=== PATIENT | female | born 1990 ===

== ENCOUNTER 2022-03-27 22:24 | Emergency (ER) | payer OTHER, SELFPAY ==
[2022-03-27] MEDS ORDERED: IBUPROFEN 400 MG TAB ONE (23:00)
--- NOTE | 2022-03-28 00:01 | ER ---
Nurse's Notes [facility] Name: Emily Oswald Age: 31 yrs Sex: Female : 1990 Arrival Date: 03/27/2022 Time: 22:45 Bed 28 Private MD: Diagnosis: Other sprain of left foot Presentation: 03/27 22:50 Chief complaint: Patient states: I tried to carry my friends daughter who is about the jb4 same size as I am, I took 2 steps and my foot folded under. Now it is bruised and swollen. Coronavirus screen: At this time, the client does not indicate any symptoms associated with coronavirus-19. Ebola Screen: No symptoms or risks identified at this time. Initial Sepsis Screen: Does the patient meet any 2 criteria? HR > 90 bpm. Yes Does the patient have a suspected source of infection? No. Patient's initial sepsis screen is negative. Risk Assessment: Do you want to hurt yourself or someone else? Patient reports no desire to harm self or others. Onset of symptoms was March 27, 2022. Transition of care: patient was not received from another setting of care. 22:50 Method Of Arrival: Wheelchair jb4 22:50 Acuity: MIRYAM 4 jb4 Triage Assessment: 22:59 General: Appears in no apparent distress. comfortable, Behavior is calm, cooperative. jb4 Pain: Complains of pain in left foot Pain does not radiate. Pain currently is 4 out of 10 on a pain scale. Neuro: Flores Agitation-Sedation Scale (RASS): 0 - Alert and Calm Level of Consciousness is awake, alert, obeys commands, Oriented to person, place, time, situation. Cardiovascular: Patient's skin is warm and dry. Respiratory: Airway is patent Respiratory effort is even, unlabored, Respiratory pattern is regular, symmetrical. Derm: Skin is intact, Skin is pink, warm \T\ dry. Musculoskeletal: Circulation, motion, and sensation intact. Swelling present in left foot. Injury Description: Bruise sustained to dorsum of left foot is purple. Historical: - Allergies: 22:52 No Known Allergies; jb4 - Home Meds: 22:52 None [Active]; jb4 - PMHx: 22:59 collitis; jb4 - PSHx: 22:52 None; jb4 - Immunization history:: Adult Immunizations unknown. - Social history:: Smoking status: Patient reports the use of cigarette tobacco products, denies chronic smoking, but will smoke occasionally, Patient uses alcohol, only on a social basis. street drugs, marijuana. Assessment: 03/28 00:37 Reassessment: pt seen by this RN at discharge pt verbalized understanding of and agrees bb to plan of care discharge instructions given pt states she has used crutches in the past. Pt assisted to exit via wheelchair. General: Appears in no apparent distress. Behavior is calm, cooperative. Pain: Complains of pain in left foot. Neuro: Level of Consciousness is awake, alert, obeys commands, Oriented to person, place, time, situation. Cardiovascular: No deficits noted. Respiratory: No deficits noted. Derm: Skin is pink, warm \T\ dry. Musculoskeletal: Swelling present in left foot. Vital Signs: 03/27 22:50 BP 132 / 101; Pulse 140; Resp 18; Temp 98.2(TE); Pulse Ox 100% on R/A; Weight 108.86 kg jb4 (R); Height 5 ft. 6 in. (167.64 cm) (R); Pain 4/10; 03/28 00:39 BP 133 / 101; Pulse 115; Resp 16 S; Pulse Ox 100% on R/A; bb 03/27 22:50 Body Mass Index 38.74 (108.86 kg, 167.64 cm) jb4 ED Course: 03/27 22:45 Patient arrived in ED. bp1 22:52 Rosa Jama FNP-C [facility]. kb 22:52 Cm Andres MD is Attending Physician. kb 22:52 Triage completed. jb4 22:59 Arm band placed on right wrist. jb4 23:44 Foot Left 3 View XRAY In Process Unspecified. EDMS 03/28 00:39 No provider procedures requiring assistance completed. Patient did not have IV access bb during this emergency room visit. Administered Medications: 03/27 23:00 Drug: Ibuprofen 800 mg Route: PO; jb4 03/28 00:36 Follow up: Response: No adverse reaction bb Outcome: 00:00 Discharge ordered by . kb 00:40 Discharged to home via wheelchair, with crutches, with family. bb 00:40 Condition: stable 00:40 Discharge instructions given to patient, Instructed on discharge instructions, follow up and referral plans. crutch walking, Demonstrated understanding of instructions, follow-up care, crutch walking. 00:40 Patient left the ED. bb Signatures: Dispatcher [employer] EDRosa Wiggins, BUSINESS EDUCATION TEACHER-C BUSINESS EDUCATION TEACHER-Mima Torres RN RN Dylan Plascencia RN RN jb4 Shirley Elam [facility] Corrections: (The following items were deleted from the chart) 03/27 23:00 22:52 PMHx: None; gala jb4
--- NOTE | 2022-03-28 00:01 | EDPHYS ---
Physician Documentation [facility] Name: Emily Oswald Age: 31 yrs Sex: Female : 1990 Arrival Date: 03/27/2022 Time: 22:45 Bed 28 Private MD: ED Physician Cm Andres HPI: 03/27 23:57 This 31 yrs old Female presents to ER via Wheelchair with complaints of Foot Injury. kb 23:57 The patient has not recently seen a physician. Pt reports she twisted her foot while kb carrying someone on her back. Reports she has had "quite a bit" of alcohol to drink tonight and smoked on the way here.. 23:58 The patient presents with pain, swelling, tenderness. The complaints affect the left kb foot. Context: [place] resulted from [place] foot, the patient is not able to bear weight, the patient is not able to ambulate. Onset: The symptoms/episode began/occurred just prior to arrival. Modifying factors: The symptoms are alleviated by nothing, the symptoms are aggravated by weight bearing. Associated signs and symptoms: Pertinent positives: swelling. Severity of symptoms: At their worst the symptoms were moderate, in the emergency department the symptoms are unchanged. The patient has not experienced similar symptoms in the past. Historical: - Allergies: 22:52 No Known Allergies; jb4 - Home Meds: 22:52 None [Active]; jb4 - PMHx: 22:59 collitis; jb4 - PSHx: 22:52 None; jb4 - Immunization history:: Adult Immunizations unknown. - Social history:: Smoking status: Patient reports the use of cigarette tobacco products, denies chronic smoking, but will smoke occasionally, Patient uses alcohol, only on a social basis. street drugs, marijuana. ROS: 23:55 Constitutional: Negative for fever, chills, and weight loss. kb 23:55 MS/extremity: Positive for pain, swelling, tenderness, of the dorsum of left foot. 23:55 All other systems are negative. Exam: 23:55 Constitutional: This is a well developed, well nourished patient who is awake, alert, kb and in no acute distress. Head/Face: Normocephalic, atraumatic. ENT: Moist Mucous membranes Cardiovascular: Regular rate and rhythm with a normal S1 and S2. No gallops, murmurs, or rubs. No pulse deficits. Respiratory: Respirations even and unlabored. No increased work of breathing. Talking in full sentences Neuro: Awake and alert, GCS 15, oriented to person, place, time, and situation. Moves all extremities. Normal gait. Psych: Awake, alert, with orientation to person, place and time. Behavior, mood, and affect are within normal limits. 23:55 Musculoskeletal/extremity: Extremities: grossly normal except: noted in the dorsum of left foot: ecchymosis, pain, swelling, tenderness, ROM: intact in all extremities, Circulation is intact in all extremities. Sensation intact. Weight bearing: is unable to bear weight. 23:55 Skin: injury, swelling, ecchymosis to dorsum of left foot. Vital Signs: 22:50 BP 132 / 101; Pulse 140; Resp 18; Temp 98.2(TE); Pulse Ox 100% on R/A; Weight 108.86 kg jb4 (R); Height 5 ft. 6 in. (167.64 cm) (R); Pain 4/10; 03/28 00:39 BP 133 / 101; Pulse 115; Resp 16 S; Pulse Ox 100% on R/A; bb 03/27 22:50 Body Mass Index 38.74 (108.86 kg, 167.64 cm) jb4 MDM: 03/27 22:52 Patient medically screened. kb 23:55 Data reviewed: vital signs, nurses notes. Data interpreted: Pulse oximetry: on room air kb is 100 %. Interpretation: normal. Counseling: I had a detailed discussion with the patient and/or guardian regarding: the historical points, exam findings, and any diagnostic results supporting the discharge/admit diagnosis, radiology results, the need for outpatient follow up, a orthopedic surgeon, to return to the emergency department if symptoms worsen or persist or if there are any questions or concerns that arise at home. 03/27 22:56 Order name: Foot Left 3 View XRAY kb 03/27 22:56 Order name: Ice pack; Complete Time: 23:14 kb 03/27 23:55 Order name: Danny Wrap; Complete Time: 00:36 kb 03/27 23:55 Order name: Crutches; Complete Time: 00:36 kb Administered Medications: 23:00 Drug: Ibuprofen 800 mg Route: PO; jb4 03/28 00:36 Follow up: Response: No adverse reaction bb Disposition: 07:27 Co-signature as Attending Physician, Cm Andres MD. [email or web address] Disposition Summary: 03/28/22 00:00 Discharge Ordered Location: Home kb Condition: Stable kb Diagnosis - Other sprain of left foot kb Followup: kb - With: Emergency Department - When: As needed - Reason: Worsening of condition Followup: kb - With: Private Physician - When: 2 - 3 days - Reason: Recheck today's complaints Discharge Instructions: - Discharge Summary Sheet kb - Foot Sprain kb Forms: - Medication Reconciliation Form kb - Thank You Letter kb - Antibiotic Education kb - Prescription Opioid Use kb Signatures: Dispatcher [employer] EDMS Rosa Jama, COLLINS-C COLLINS-Dylan Norris, RN RN jb4 Cm Andres MD MD [email or web address] Mima Garsia RN Corrections: (The following items were deleted from the chart) 03/27 23:00 22:52 PMHx: None; jb4 jb4
[2022-03-28 00:46] VITALS: TEMP 98.2; O2SAT 100
[2022-03-28 00:47] VITALS: BP 133/101
--- NOTE | 2022-03-28 16:06 | RAD REPORT ---
EXAM DESCRIPTION: RAD - Foot Left 3 View - 03/27/2022 11:42 pm CLINICAL HISTORY: PAIN COMPARISON: None. TECHNIQUE: XR FOOT 3 OR MORE VIEWS 03/27/2022 10:56 PM CDT FINDINGS: There is no fracture. Joint spaces are preserved. There is extensive soft tissue swellin g overlying the dorsum of the forefoot. IMPRESSION: No acute osseous findings. Electronically signed by: Jacoby Siegel MD 03/28/2022 12:03 AM CDT Due to temporary technical issues with the PACS/Fluency reporting system, reports are being signed by the in house radiologist without review as a courtesy to ensure prompt reporting. The interpreting r adiologist is fully responsible for the content of the report.
== END 2022-03-28 00:40 | disposition home or self-care (01) ==
LOC: ER 22:24
DX: S93.602A Unspecified sprain of left foot, initial encounter (principal); X50.1XXA Overexertion from prolonged static or awkward postures, initial encounter; Y93.89 Activity, other specified; Y92.9 Unspecified place or not applicable
CPT/HCPCS: 99283